=== PATIENT | female | born 1995 ===

== ENCOUNTER 2021-11-28 09:11 | Emergency (ER) | payer BC ==
[2021-11-28 10:39] LABS: CARBON DIOXIDE,CO2 26.2 mmol/L (21.0-32.0); POTASSIUM,K 4.2 mmol/L (3.5-5.1)
[2021-11-28] MEDS ORDERED: Lactated Ringers 1,000 ML IV STA (10:55)
== END 2021-11-28 13:37 | disposition home or self-care (01) ==
LOC: MW.ED 09:11
DX: R42 Dizziness and giddiness (principal); Z79.899 Other long term (current) drug therapy; Z20.822 Contact with and (suspected) exposure to COVID-19
CPT/HCPCS: 36415; 80048; 81001; 85025; 86850; 86900; 86901; 87635; 93005; 96360; 99284; J7120; U0002

== ENCOUNTER 2021-11-28 17:24 | Inpatient (IN) | payer BC ==
[2021-11-28] MEDS ORDERED: Labetalol 100 MG Tab PO STA (17:43)
[2021-11-28] MEDS ORDERED: Famotidine 20 MG Tab PO ONE (17:49)
[2021-11-28] MEDS ORDERED: Witch Hazel Medicated Pads 40/Jar TOP PRN (19:29)
[2021-11-28] MEDS ORDERED: Benzocaine/Menthol 20%-0.5% Spray 78 GM Cannister TOP PRN (19:29)
[2021-11-28] MEDS ORDERED: Lanolin 100% Cream 7 GM Tube TOP PRN (19:29)
[2021-11-28] MEDS ORDERED: Ibuprofen 800 MG Tab PO PRN (19:29)
[2021-11-28] MEDS ORDERED: Docusate Sodium 100 MG Cap PO PRN (19:29)
[2021-11-28] MEDS: Labetalol 100 MG Tab PO SCH ×2 (21:44→23:28)
[2021-11-28] MEDS: Triamcinolone Acetonide 0.1% Crm 15 GM Tube TOP PRN (22:46)
[2021-11-29 07:29] LABS: POTASSIUM,K 3.7 mmol/L (3.5-5.1)
[2021-11-29] MEDS: Triamcinolone Acetonide 0.1% Crm 15 GM Tube TOP PRN ×2 (08:21→14:06)
[2021-11-29] MEDS: Iron Polysaccharides Complex 150 MG Cap PO SCH (08:23)
[2021-11-29] MEDS: Labetalol 100 MG Tab PO SCH ×2 (08:23→21:08)
[2021-11-29] MEDS ORDERED: Magnesium Sulfate/Water 2 GM in Premix Bag 1 BAG IV ONE (08:53)
[2021-11-29] MEDS ORDERED: Sodium Chloride 0.9% 10 ML Syringe FLUSH PRN (08:53)
[2021-11-29] MEDS ORDERED: Sodium Chloride 0.9% 2.5 ML Syringe FLUSH PRN (08:53)
[2021-11-29] MEDS ORDERED: Calcium Gluconate 10% 1 GM/10 ML SDV IV PRN (08:53)
[2021-11-29] MEDS ORDERED: Sodium Chloride 0.9% 20 ML SDV IV PRN (08:53)
[2021-11-29] MEDS ORDERED: Labetalol 100 MG/20 ML MDV IVPUSH PRN (10:41)
[2021-11-29] MEDS ORDERED: LORazepam 2 MG/ML SDV IVPUSH PRN (10:43)
[2021-11-29] MEDS ORDERED: Magnesium Sulfate/Water 50 ML ONE (11:04)
[2021-11-29] MEDS: Magnesium Sulfate/Water 20 GM/500 ML BAG IV SCH ×2 (11:44→22:02)
[2021-11-29] MEDS: Prenatal Multivitamin with Calcium/Folic Acid/Iron Tab PO SCH (12:42)
[2021-11-29] MEDS: Acetaminophen 500 MG Tab PO PRN (18:31)
[2021-11-30] MEDS: Acetaminophen 500 MG Tab PO PRN ×2 (00:34→07:38)
[2021-11-30 08:08] LABS: CARBON DIOXIDE,CO2 25.5 mmol/L (21.0-32.0); POTASSIUM,K 3.9 mmol/L (3.5-5.1)
[2021-11-30] MEDS: Prenatal Multivitamin with Calcium/Folic Acid/Iron Tab PO SCH (09:09)
[2021-11-30] MEDS: Iron Polysaccharides Complex 150 MG Cap PO SCH (09:10)
[2021-11-30] MEDS: Labetalol 100 MG Tab PO SCH ×2 (09:11→21:34)
[2021-11-30] MEDS ORDERED: Triamcinolone Acetonide 0.1% Crm 80 GM Tube TOP PRN (09:53)
[2021-12-01 08:32] LABS: CARBON DIOXIDE,CO2 19.8 mmol/L (21.0-32.0); POTASSIUM,K 4.1 mmol/L (3.5-5.1)
[2021-12-01] MEDS: Labetalol 100 MG Tab PO SCH (09:41)
[2021-12-01] MEDS: Prenatal Multivitamin with Calcium/Folic Acid/Iron Tab PO SCH (09:41)
[2021-12-01] MEDS: Iron Polysaccharides Complex 150 MG Cap PO SCH (09:41)
== END 2021-12-01 10:30 | disposition home or self-care (01) | DRG 561 ==
LOC: MW.ED 17:24 → MW.MS 17:44 → OBSVTOIN 11-29 09:42 → MW.MS 11-29 11:59 → MW.OB 11-29 19:25
PROVIDERS: ADMIT Obstetrics & Gynecology; ATTEND Obstetrics & Gynecology
DX: O14.15 Severe pre-eclampsia, complicating the puerperium (principal); O99.345 Other mental disorders complicating the puerperium; F41.9 Anxiety disorder, unspecified
CPT/HCPCS: 36415; 80053; 81001; 82947; 83735; 84443; 85027; 85049; 99284; A9270-GY; J2060; J3475; J3490

== ENCOUNTER 2025-01-23 17:08 | Emergency (ER) | payer SELFPAY ==
[2025-01-23 18:14] LABS: BASOPHILS ABSOLUTE AUTO 0.02 K/uL (0.00-0.20); BASOPHILS PERCENT AUTO 0.2 % (0.0-1.0); EOSINOPHILS ABSOLUTE AUTO 0.10 K/uL (0.00-0.45); EOSINOPHILS PERCENT AUTO 1.0 % (0.0-6.0); IMMATURE GRAN ABSOLUTE AUTO 0.04 K/uL (0.00-0.05); IMMATURE GRAN PERCENT AUTO 0.4 % (0.0-0.4); LYMPHOCYTES ABSOLUTE AUTO 1.85 K/uL (1.00-4.80); LYMPHOCYTES PERCENT AUTO 18.3 % (24.0-44.0); MEAN PLATELET VOLUME 10.2 fL (9.4-12.3); MONOCYTES ABSOLUTE AUTO 0.57 K/uL (0.00-0.80); MONOCYTES PERCENT AUTO 5.6 % (0.0-8.0); NEUTROPHILS ABSOLUTE AUTO 7.51 K/uL (1.80-7.70); NEUTROPHILS PERCENT AUTO 74.5 % (41.0-71.0); NRBC ABSOLUTE 0.00 K/uL (0.00-0.02); NRBC PERCENT 0.0 /100WBC (0.0-0.2); PLATELET COUNT,PLT 252 K/uL (150-400); RED BLOOD CELL COUNT 4.07 M/uL (4.10-5.30); WHITE BLOOD CELL COUNT,WBC 10.09 K/uL (3.9-11.3)
[2025-01-23 18:20] LABS: APPEARANCE,URINE CLEAR; GLUCOSE,URINE NEGATIVE (NEGATIVE); OCCULT BLOOD,URINE SMALL (NEGATIVE)
[2025-01-23 18:35] LABS: EPITHELIAL CELLS,URINE MODERATE (NONE-FEW)
[2025-01-23 19:13] LABS: A/G RATIO 0.9 (0.9-1.6); ALANINE AMINOTRANSFERASE,ALT 17.0 IU/L (14-63); ASPARTATE AMNIOTRANSFERASE,AST 17.0 IU/L (15-37); BILIRUBIN TOTAL 0.2 mg/dL (0.2-1.0); BLOOD UREA NITROGEN,BUN 11.0 mg/dL (7.0-18.0); CARBON DIOXIDE,CO2 23.0 mmol/L (21.0-32.0); CHLORIDE,CL 104.0 mmol/L (98-107); CREATININE 0.6 mg/dL (0.6-1.0); EST CRCL DRUG DOSING (CG) 128.35 mL/min; GLUCOSE RANDOM 95.0 mg/dL (74-106); POTASSIUM,K 3.8 mmol/L (3.5-5.1); PROTEIN TOTAL,TP 6.7 g/dL (6.4-8.2); SODIUM,NA 139.0 mmol/L (136-145)
[2025-01-23 19:16] LABS: ESTIMATED GFR 124.0 mL/min (>60); HCG QUANTITATIVE 13369.0 mIU/mL
== END 2025-01-23 20:05 | disposition home or self-care (01) ==
LOC: MW.ED 17:08
DX: O20.0 Threatened abortion (principal); Z79.899 Other long term (current) drug therapy; Z75.3 Unavailability and inaccessibility of health-care facilities; Z3A.16 16 weeks gestation of pregnancy
CPT/HCPCS: 36415; 76817; 76817-26; 80053; 81001; 84702; 85025; 86900; 86901; 99283; 99284

== ENCOUNTER 2025-02-11 17:58 | Emergency (ER) | payer SELFPAY ==
[2025-02-11 18:13] LABS: APPEARANCE,URINE CLEAR; GLUCOSE,URINE NEGATIVE (NEGATIVE); OCCULT BLOOD,URINE TRACE-LYSED (NEGATIVE)
[2025-02-11 18:30] LABS: BASOPHILS ABSOLUTE AUTO 0.03 K/uL (0.00-0.20); BASOPHILS PERCENT AUTO 0.3 % (0.0-1.0); EOSINOPHILS ABSOLUTE AUTO 0.14 K/uL (0.00-0.45); EOSINOPHILS PERCENT AUTO 1.2 % (0.0-6.0); IMMATURE GRAN ABSOLUTE AUTO 0.05 K/uL (0.00-0.05); IMMATURE GRAN PERCENT AUTO 0.4 % (0.0-0.4); LYMPHOCYTES ABSOLUTE AUTO 1.85 K/uL (1.00-4.80); LYMPHOCYTES PERCENT AUTO 16.0 % (24.0-44.0); MEAN PLATELET VOLUME 10.4 fL (9.4-12.3); MONOCYTES ABSOLUTE AUTO 0.73 K/uL (0.00-0.80); MONOCYTES PERCENT AUTO 6.3 % (0.0-8.0); NEUTROPHILS ABSOLUTE AUTO 8.78 K/uL (1.80-7.70); NEUTROPHILS PERCENT AUTO 75.8 % (41.0-71.0); NRBC ABSOLUTE 0.00 K/uL (0.00-0.02); NRBC PERCENT 0.0 /100WBC (0.0-0.2); PLATELET COUNT,PLT 265 K/uL (150-400); RED BLOOD CELL COUNT 4.32 M/uL (4.10-5.30); WHITE BLOOD CELL COUNT,WBC 11.58 K/uL (3.9-11.3)
[2025-02-11 19:14] LABS: A/G RATIO 0.9 (0.9-1.6); ALANINE AMINOTRANSFERASE,ALT 12.0 IU/L (14-63); ASPARTATE AMNIOTRANSFERASE,AST 10.0 IU/L (15-37); BILIRUBIN TOTAL 0.1 mg/dL (0.2-1.0); BLOOD UREA NITROGEN,BUN 9.0 mg/dL (7.0-18.0); CARBON DIOXIDE,CO2 24.1 mmol/L (21.0-32.0); CHLORIDE,CL 104.0 mmol/L (98-107); CREATININE 0.5 mg/dL (0.6-1.0); EST CRCL DRUG DOSING (CG) 146.7 mL/min; GLUCOSE RANDOM 87.0 mg/dL (74-106); POTASSIUM,K 3.5 mmol/L (3.5-5.1); PROTEIN TOTAL,TP 7.4 g/dL (6.4-8.2); SODIUM,NA 139.0 mmol/L (136-145)
[2025-02-11 19:15] LABS: ESTIMATED GFR 129.0 mL/min (>60); HCG QUANTITATIVE 7951.0 mIU/mL
== END 2025-02-11 20:11 | disposition home or self-care (01) ==
LOC: MW.ED 17:58
DX: O20.0 Threatened abortion (principal); Z3A.19 19 weeks gestation of pregnancy; Z75.3 Unavailability and inaccessibility of health-care facilities
CPT/HCPCS: 36415; 76815; 76815-26; 80053; 81003; 84702; 85025; 86850; 86900; 86901; 99283; 99284